=== PATIENT | female | born 1935 | race African-American/Black ===

== ENCOUNTER → 2017-01-27 | Outpatient (CLI) | payer MEDICARE ==
[~2017-01-27] MED LIST: CARB1TAB21 PO; LOSA25TA12 PO; MIR25 PO; SPIR25TA4 PO
== END | disposition home or self-care (01) ==
LOC: RAD 16:34
PROVIDERS: ATTEND Internal Medicine Critical Care Medicine
DX: Z01.818 Encounter for other preprocedural examination (principal); G20 Parkinson's disease; I51.7 Cardiomegaly; M51.87 Other intervertebral disc disorders, lumbosacral region
CPT/HCPCS: 71020

== ENCOUNTER → 2017-01-30 | Outpatient (CLI) | payer MEDICARE ==
[2017-01-30 18:03] LABS: BASOPHILS % 1.2 % (0.0-2.0); EOSINOPHILS % 2.9 % (0.0-5.0); HEMATOCRIT. 31.4 % (36.0-48.0); HEMOGLOBIN. 10.5 g/dL (12.0-16.0); MEAN CORPUSCULAR HEMOGLOBIN 28.8 pg (28.0-32.0); MEAN CORPUSCULAR HGB CONC 33.3 g/dL (31.0-37.0); MEAN CORPUSCULAR VOLUME 86.5 fL (81.0-99.0); MEAN PLATELET VOLUME 8.1 fl (7.4-10.4); MONOCYTES % 13.3 % (2.0-8.0); NEUTROPHILS % 44.6 % (40.0-76.0); PLATELET 157 x1000/uL (130-400); RED BLOOD CELL COUNT 3.63 mill/uL (4.2-5.4); WHITE BLOOD COUNT 3.2 x1000/uL (4.5-11.0)
[2017-01-30 18:22] LABS: ALANINE AMINOTRANSFERASE 15 IU/L (13-61); ALBUMIN 3.3 g/dL (3.4-5.0); ANION GAP 11; CALCIUM 9.1 mg/dL (8.5-10.1); CARBON DIOXIDE 29 mEq/L (21-32); CHLORIDE 105 mEq/L (98-107); INDEX HEMOLYSI 1 (1-3); INDEX ICTERIC 1 (1-4); INDEX LIPEMIC 1 (1-3); UREA NITROGEN BLOOD 22 mg/dL (7-21); eGFR > 60 mL/min (>60)
== END | disposition home or self-care (01) ==
LOC: LAB 17:22
PROVIDERS: ATTEND Internal Medicine Critical Care Medicine
DX: Z01.818 Encounter for other preprocedural examination (principal); G20 Parkinson's disease
CPT/HCPCS: 36415; 80053; 85025

== ENCOUNTER 2017-03-25 15:15 | Inpatient (IN) | payer MEDICARE ==
[~2017-03-25] VITALS: Ht 175.3 cm; Wt 71.2 kg
[2017-03-25 20:00] VITALS: BP 142/77
[2017-03-25] MEDS ORDERED: IBUPROFEN 200MG TABLET PO PRN (21:00)
[2017-03-25] MEDS ORDERED: PRAMIPEXOLE DI-HCL 0.125MG TABLET PO SCH (22:00)
[2017-03-25] MEDS: HYDRALAZINE HCL 25MG TABLET PO SCH (22:04)
[2017-03-25] MEDS: DONEPEZIL HCL 5MG TABLET PO SCH (22:04)
[2017-03-25] MEDS: PRAMIPEXOLE DI-HCL 0.25MG TABLET PO SCH (23:12)
[2017-03-26] MEDS: HYDROCODONE/ACETAMINOPHEN 5/325MG TABLET PO PRN (00:26)
[2017-03-26 06:47] LABS: INR 1.1; PROTHROMBIN TIME 11.2 sec
[2017-03-26] MEDS: PRAMIPEXOLE DI-HCL 0.25MG TABLET PO SCH ×3 (06:48→21:29)
[2017-03-26] MEDS ORDERED: PANTOPRAZOLE 40MG DR TABLET PO SCH (07:00)
[2017-03-26 07:06] LABS: BASOPHILS % 0.8 % (0.0-2.0); EOSINOPHILS % 1.2 % (0.0-5.0); HEMATOCRIT. 32.1 % (36.0-48.0); HEMOGLOBIN. 10.7 g/dL (12.0-16.0); LYMPHOCYTES % 34.4 % (20.0-50.0); MEAN CORPUSCULAR HEMOGLOBIN 28.5 pg (28.0-32.0); MEAN CORPUSCULAR VOLUME 85.4 fL (81.0-99.0); MEAN PLATELET VOLUME 7.7 fl (7.4-10.4); MONOCYTES % 12.1 % (2.0-8.0); NEUTROPHILS % 51.5 % (40.0-76.0); PLATELET 218 x1000/uL (130-400); RED BLOOD CELL COUNT 3.76 mill/uL (4.2-5.4); RED CELL DISTRIBUTION WIDTH 14.1 % (11.6-14.6)
[2017-03-26 07:42] LABS: CARBON DIOXIDE 27 mEq/L (21-32); CHLORIDE 105 mEq/L (98-107)
[2017-03-26 08:00] VITALS: BP 79/52
[2017-03-26] MEDS: CARBIDOPA/LEVODOPA 25/100MG TABLET CR PO SCH ×2 (08:30→17:12)
[2017-03-26] MEDS: HYDRALAZINE HCL 25MG TABLET PO SCH (08:30)
[2017-03-26] MEDS: DOCUSATE SODIUM 100MG CAPSULE PO SCH (08:30)
[2017-03-26] MEDS ORDERED: CHOLECALCIFEROL (D3) 1000 UNIT TABLET PO SCH (09:00)
[2017-03-26] MEDS ORDERED: SPIRONOLACTONE 25MG TABLET PO SCH (09:00)
[2017-03-26] MEDS ORDERED: SODIUM CHLORIDE 0.9% 250 ML IV ONE (09:30)
[2017-03-26] MEDS: ENOXAPARIN 40MG/0.4ML SYR SUBCUT SCH (11:49)
[2017-03-26 13:00] VITALS: BP 119/73
[2017-03-26] MEDS: CALCIUM CARBONATE/VITAMIN D3 500MG TABLET PO SCH (17:00)
[2017-03-26 20:00] VITALS: BP 108/61
[2017-03-26] MEDS: DONEPEZIL HCL 5MG TABLET PO SCH (21:29)
[2017-03-27] MEDS: PRAMIPEXOLE DI-HCL 0.25MG TABLET PO SCH ×3 (06:00→21:13)
[2017-03-27 08:00] VITALS: BP 162/87
[2017-03-27] MEDS: DOCUSATE SODIUM 100MG CAPSULE PO SCH (09:46)
[2017-03-27] MEDS: CALCIUM CARBONATE/VITAMIN D3 500MG TABLET PO SCH ×2 (09:46→16:40)
[2017-03-27] MEDS: MULTIVITAMINS,THER W-MINERALS TABLET PO SCH (09:46)
[2017-03-27] MEDS: CARBIDOPA/LEVODOPA 25/100MG TABLET CR PO SCH ×2 (09:47→16:40)
[2017-03-27] MEDS: LOSARTAN POTASSIUM 25 MG TABLET PO SCH (09:47)
[2017-03-27] MEDS: FAMOTIDINE 20MG TABLET PO SCH (09:47)
[2017-03-27] MEDS: ENOXAPARIN 40MG/0.4ML SYR SUBCUT SCH (09:47)
[2017-03-27] MEDS: HYDROCODONE/ACETAMINOPHEN 5/325MG TABLET PO PRN (09:48)
[2017-03-27] MEDS ORDERED: IBUPROFEN 400MG TABLET PO PRN (10:22)
[2017-03-27] MEDS: LIDOCAINE 5% PATCH TOP SCH (11:54)
[2017-03-27 18:46] LABS: CLARITY URINE TURBID (CLEAR); COLOR URINE YELLOW (YELLOW); GLUCOSE URINE NEGATIVE (NEGATIVE); KETONES URINE TRACE (NEGATIVE); LEUKOCYTE ESTERASE URINE 3+ (NEGATIVE); NITRITE URINE NEGATIVE (NEGATIVE); OCCULT BLOOD URINE 2+ (NEGATIVE); PH URINE 7.5 (4.5-8.0); PROTEIN URINE 2+ (NEGATIVE); SPECIFIC GRAVITY URINE 1.017 (1.005-1.030)
[2017-03-27 20:25] VITALS: BP 108/68
[2017-03-27 20:37] LABS: CARBON DIOXIDE 26 mEq/L (21-32); CHLORIDE 105 mEq/L (98-107)
[2017-03-27 20:39] LABS: TOTAL IRON BINDING CAPACITY 253 ug/dL (250-450)
[2017-03-27 20:47] LABS: PREALBUMIN 19.8 mg/dL (20.0-40.0)
[2017-03-27 21:01] LABS: FOLIC ACID (FOLATE) SERUM 10.5 ng/mL (>5.38)
[2017-03-27] MEDS: DONEPEZIL HCL 5MG TABLET PO SCH (21:13)
[2017-03-27] MEDS: BENZTROPINE MESYLATE 0.5MG TABLET PO SCH (21:13)
[2017-03-28] MEDS: PRAMIPEXOLE DI-HCL 0.25MG TABLET PO SCH ×3 (06:42→22:00)
[2017-03-28 08:00] VITALS: BP 131/84
[2017-03-28] MEDS: CARBIDOPA/LEVODOPA 25/100MG TABLET CR PO SCH ×2 (08:13→17:19)
[2017-03-28] MEDS: DOCUSATE SODIUM 100MG CAPSULE PO SCH (08:13)
[2017-03-28] MEDS: LOSARTAN POTASSIUM 25 MG TABLET PO SCH (08:13)
[2017-03-28] MEDS: FAMOTIDINE 20MG TABLET PO SCH (08:13)
[2017-03-28] MEDS: BENZTROPINE MESYLATE 0.5MG TABLET PO SCH ×2 (08:13→21:06)
[2017-03-28] MEDS: CALCIUM CARBONATE/VITAMIN D3 500MG TABLET PO SCH ×2 (08:13→17:19)
[2017-03-28] MEDS: MULTIVITAMINS,THER W-MINERALS TABLET PO SCH (08:13)
[2017-03-28] MEDS: ENOXAPARIN 40MG/0.4ML SYR SUBCUT SCH (08:14)
[2017-03-28] MEDS: LIDOCAINE 5% PATCH TOP SCH (08:14)
[2017-03-28] MEDS ORDERED: BISACODYL 10MG SUPP PR PRN (12:45)
[2017-03-28] MEDS ORDERED: BISACODYL 5MG TABLET PO PRN (12:45)
[2017-03-28] MEDS: LACTULOSE 20G/30ML UDC PO SCH ×2 (13:16→17:00)
[2017-03-28] MEDS: IBUPROFEN 400MG TABLET PO PRN (13:16)
[2017-03-28] MEDS: LEVOFLOXACIN 500MG TABLET PO SCH (17:19)
[2017-03-28] MEDS: ASCORBIC ACID 250 MG TABLET PO SCH (17:22)
[2017-03-28] MEDS: FERROUS SULFATE 325MG TABLET PO SCH (17:22)
[2017-03-28 20:00] VITALS: BP 85/45
[2017-03-28] MEDS: DONEPEZIL HCL 5MG TABLET PO SCH (21:06)
[2017-03-29] MEDS: PRAMIPEXOLE DI-HCL 0.25MG TABLET PO SCH ×3 (06:00→21:26)
[2017-03-29 07:55] LABS: BASOPHILS % 0.9 % (0.0-2.0); EOSINOPHILS % 1.6 % (0.0-5.0); HEMATOCRIT. 30.5 % (36.0-48.0); HEMOGLOBIN. 10.2 g/dL (12.0-16.0); LYMPHOCYTES % 32.4 % (20.0-50.0); MEAN CORPUSCULAR HEMOGLOBIN 28.5 pg (28.0-32.0); MEAN CORPUSCULAR VOLUME 85.2 fL (81.0-99.0); MEAN PLATELET VOLUME 7.5 fl (7.4-10.4); MONOCYTES % 13.8 % (2.0-8.0); NEUTROPHILS % 51.3 % (40.0-76.0); PLATELET 189 x1000/uL (130-400); RED BLOOD CELL COUNT 3.58 mill/uL (4.2-5.4); RED CELL DISTRIBUTION WIDTH 14.2 % (11.6-14.6)
[2017-03-29 08:29] LABS: CARBON DIOXIDE 29 mEq/L (21-32); CHLORIDE 106 mEq/L (98-107); HDL CHOLESTEROL 45 mg/dL (40-59); LDL CHOLESTEROL 82 mg/dL (5-100); TOTAL IRON BINDING CAPACITY 252 ug/dL (250-450)
[2017-03-29] MEDS: LIDOCAINE 5% PATCH TOP SCH (09:00)
[2017-03-29] MEDS: DOCUSATE SODIUM 100MG CAPSULE PO SCH (09:00)
[2017-03-29] MEDS: LOSARTAN POTASSIUM 25 MG TABLET PO SCH (09:00)
[2017-03-29] MEDS: CARBIDOPA/LEVODOPA 25/100MG TABLET CR PO SCH ×2 (09:15→17:33)
[2017-03-29] MEDS: CALCIUM CARBONATE/VITAMIN D3 500MG TABLET PO SCH ×2 (09:15→17:33)
[2017-03-29] MEDS: BENZTROPINE MESYLATE 0.5MG TABLET PO SCH ×2 (09:15→21:26)
[2017-03-29] MEDS: MULTIVITAMINS,THER W-MINERALS TABLET PO SCH (09:15)
[2017-03-29] MEDS: FAMOTIDINE 20MG TABLET PO SCH (09:15)
[2017-03-29] MEDS: ENOXAPARIN 40MG/0.4ML SYR SUBCUT SCH (09:19)
[2017-03-29 09:52] VITALS: BP 95/56
[2017-03-29] MEDS: LEVOFLOXACIN 500MG TABLET PO SCH (10:54)
[2017-03-29] MEDS: FERROUS SULFATE 325MG TABLET PO SCH (17:33)
[2017-03-29] MEDS: ASCORBIC ACID 250 MG TABLET PO SCH (17:33)
[2017-03-29 20:00] VITALS: BP 109/56
[2017-03-29] MEDS: DONEPEZIL HCL 5MG TABLET PO SCH (21:26)
[2017-03-30] MEDS: PRAMIPEXOLE DI-HCL 0.25MG TABLET PO SCH ×3 (06:09→22:00)
[2017-03-30 07:59] VITALS: BP 146/91
[2017-03-30] MEDS: MULTIVITAMINS,THER W-MINERALS TABLET PO SCH ×2 (08:56→09:00)
[2017-03-30] MEDS: DOCUSATE SODIUM 100MG CAPSULE PO SCH ×2 (08:56→09:00)
[2017-03-30] MEDS: ENOXAPARIN 40MG/0.4ML SYR SUBCUT SCH ×2 (08:56→09:00)
[2017-03-30] MEDS: LOSARTAN POTASSIUM 25 MG TABLET PO SCH (08:56)
[2017-03-30] MEDS: BENZTROPINE MESYLATE 0.5MG TABLET PO SCH ×2 (08:56→21:00)
[2017-03-30] MEDS: FAMOTIDINE 20MG TABLET PO SCH (08:56)
[2017-03-30] MEDS: CALCIUM CARBONATE/VITAMIN D3 500MG TABLET PO SCH ×2 (08:56→17:06)
[2017-03-30] MEDS: CARBIDOPA/LEVODOPA 25/100MG TABLET CR PO SCH ×2 (08:56→17:06)
[2017-03-30] MEDS: LIDOCAINE 5% PATCH TOP SCH ×2 (08:58→09:00)
[2017-03-30] MEDS: LEVOFLOXACIN 500MG TABLET PO SCH (11:07)
[2017-03-30] MEDS: ASCORBIC ACID 250 MG TABLET PO SCH (17:07)
[2017-03-30] MEDS: FERROUS SULFATE 325MG TABLET PO SCH (17:07)
[2017-03-30 20:00] VITALS: BP 92/58
[2017-03-30] MEDS: DONEPEZIL HCL 5MG TABLET PO SCH (21:00)
[2017-03-31] MEDS: PRAMIPEXOLE DI-HCL 0.25MG TABLET PO SCH ×3 (06:00→22:00)
[2017-03-31 06:29] LABS: BASOPHILS % 0.7 % (0.0-2.0); EOSINOPHILS % 1.6 % (0.0-5.0); HEMOGLOBIN. 11.4 g/dL (12.0-16.0); LYMPHOCYTES % 29.9 % (20.0-50.0); MEAN CORPUSCULAR HEMOGLOBIN 28.8 pg (28.0-32.0); MEAN CORPUSCULAR VOLUME 86.1 fL (81.0-99.0); MEAN PLATELET VOLUME 7.6 fl (7.4-10.4); MONOCYTES % 11.9 % (2.0-8.0); NEUTROPHILS % 55.9 % (40.0-76.0); PLATELET 192 x1000/uL (130-400); RED BLOOD CELL COUNT 3.95 mill/uL (4.2-5.4); RED CELL DISTRIBUTION WIDTH 14.2 % (11.6-14.6)
[2017-03-31 06:45] LABS: CARBON DIOXIDE 26 mEq/L (21-32); CHLORIDE 105 mEq/L (98-107)
[2017-03-31 08:00] VITALS: BP 148/92
[2017-03-31] MEDS: LOSARTAN POTASSIUM 25 MG TABLET PO SCH (09:00)
[2017-03-31] MEDS: LIDOCAINE 5% PATCH TOP SCH (09:00)
[2017-03-31] MEDS: DOCUSATE SODIUM 100MG CAPSULE PO SCH (11:44)
[2017-03-31] MEDS: CALCIUM CARBONATE/VITAMIN D3 500MG TABLET PO SCH ×2 (11:44→16:47)
[2017-03-31] MEDS: CARBIDOPA/LEVODOPA 25/100MG TABLET CR PO SCH ×2 (11:45→16:48)
[2017-03-31] MEDS: ENOXAPARIN 40MG/0.4ML SYR SUBCUT SCH (11:45)
[2017-03-31] MEDS: LEVOFLOXACIN 500MG TABLET PO SCH (11:45)
[2017-03-31] MEDS: MULTIVITAMINS,THER W-MINERALS TABLET PO SCH (11:45)
[2017-03-31] MEDS: BENZTROPINE MESYLATE 0.5MG TABLET PO SCH ×2 (11:45→21:00)
[2017-03-31] MEDS: FAMOTIDINE 20MG TABLET PO SCH (11:45)
[2017-03-31] MEDS: SULFAMETHOXAZOLE/TRIMETHOPRIM 800/160MG TABLET PO SCH ×2 (13:43→21:00)
[2017-03-31] MEDS: ASCORBIC ACID 250 MG TABLET PO SCH (16:48)
[2017-03-31] MEDS: FERROUS SULFATE 325MG TABLET PO SCH (16:48)
[2017-03-31 20:00] VITALS: BP 132/66
[2017-03-31] MEDS: DONEPEZIL HCL 5MG TABLET PO SCH (21:00)
[2017-04-01] MEDS: PRAMIPEXOLE DI-HCL 0.25MG TABLET PO SCH ×3 (06:00→21:03)
[2017-04-01 08:00] VITALS: BP 149/98
[2017-04-01] MEDS: CARBIDOPA/LEVODOPA 25/100MG TABLET CR PO SCH ×2 (08:05→16:23)
[2017-04-01] MEDS: SULFAMETHOXAZOLE/TRIMETHOPRIM 800/160MG TABLET PO SCH (08:05)
[2017-04-01] MEDS: MULTIVITAMINS,THER W-MINERALS TABLET PO SCH (08:06)
[2017-04-01] MEDS: ENOXAPARIN 40MG/0.4ML SYR SUBCUT SCH (08:06)
[2017-04-01] MEDS: CALCIUM CARBONATE/VITAMIN D3 500MG TABLET PO SCH ×2 (08:06→16:23)
[2017-04-01] MEDS: LOSARTAN POTASSIUM 25 MG TABLET PO SCH (08:06)
[2017-04-01] MEDS: LIDOCAINE 5% PATCH TOP SCH (08:06)
[2017-04-01] MEDS: BENZTROPINE MESYLATE 0.5MG TABLET PO SCH ×2 (08:06→21:04)
[2017-04-01] MEDS: DOCUSATE SODIUM 100MG CAPSULE PO SCH (08:06)
[2017-04-01] MEDS: IBUPROFEN 400MG TABLET PO PRN (08:06)
[2017-04-01] MEDS: FAMOTIDINE 20MG TABLET PO SCH (08:08)
[2017-04-01] MEDS: LEVOFLOXACIN 500MG TABLET PO SCH (12:25)
[2017-04-01] MEDS: FERROUS SULFATE 325MG TABLET PO SCH (16:23)
[2017-04-01] MEDS: ASCORBIC ACID 250 MG TABLET PO SCH (16:23)
[2017-04-01 20:00] VITALS: BP 110/76
[2017-04-01] MEDS ORDERED: QUETIAPINE FUMARATE 25MG TABLET PO SCH (21:00)
[2017-04-01] MEDS: DONEPEZIL HCL 5MG TABLET PO SCH (21:03)
[2017-04-02 08:00] VITALS: BP 111/61
[2017-04-02] MEDS: DOCUSATE SODIUM 100MG CAPSULE PO SCH (09:00)
[2017-04-02] MEDS: LOSARTAN POTASSIUM 25 MG TABLET PO SCH (09:00)
[2017-04-02] MEDS: CALCIUM CARBONATE/VITAMIN D3 500MG TABLET PO SCH ×2 (09:00→17:57)
[2017-04-02] MEDS: FAMOTIDINE 20MG TABLET PO SCH (09:00)
[2017-04-02] MEDS: ENOXAPARIN 40MG/0.4ML SYR SUBCUT SCH (09:00)
[2017-04-02] MEDS: MULTIVITAMINS,THER W-MINERALS TABLET PO SCH (09:00)
[2017-04-02] MEDS: BENZTROPINE MESYLATE 0.5MG TABLET PO SCH ×2 (09:12→20:57)
[2017-04-02] MEDS: CARBIDOPA/LEVODOPA 25/100MG TABLET CR PO SCH ×3 (09:12→17:57)
[2017-04-02] MEDS: IBUPROFEN 400MG TABLET PO PRN (09:18)
[2017-04-02] MEDS: LIDOCAINE 5% PATCH TOP SCH (09:19)
[2017-04-02] MEDS: LEVOFLOXACIN 500MG TABLET PO SCH (10:15)
[2017-04-02] MEDS: ASCORBIC ACID 250 MG TABLET PO SCH (17:57)
[2017-04-02] MEDS: FERROUS SULFATE 325MG TABLET PO SCH (17:57)
[2017-04-02 20:27] VITALS: BP 143/76
[2017-04-02] MEDS: QUETIAPINE FUMARATE 25MG TABLET PO SCH (20:57)
[2017-04-02] MEDS: DONEPEZIL HCL 5MG TABLET PO SCH (20:57)
[2017-04-03 08:00] VITALS: BP 153/78
[2017-04-03] MEDS: LIDOCAINE 5% PATCH TOP SCH ×2 (09:00→09:15)
[2017-04-03] MEDS: ENOXAPARIN 40MG/0.4ML SYR SUBCUT SCH (09:14)
[2017-04-03] MEDS: MULTIVITAMINS,THER W-MINERALS TABLET PO SCH (09:14)
[2017-04-03] MEDS: CALCIUM CARBONATE/VITAMIN D3 500MG TABLET PO SCH ×2 (09:14→17:35)
[2017-04-03] MEDS: FAMOTIDINE 20MG TABLET PO SCH (09:14)
[2017-04-03] MEDS: BENZTROPINE MESYLATE 0.5MG TABLET PO SCH ×2 (09:14→20:58)
[2017-04-03] MEDS: CARBIDOPA/LEVODOPA 25/100MG TABLET CR PO SCH ×3 (09:14→17:35)
[2017-04-03] MEDS: DOCUSATE SODIUM 100MG CAPSULE PO SCH (09:14)
[2017-04-03] MEDS: LEVOFLOXACIN 500MG TABLET PO SCH (10:55)
[2017-04-03] MEDS: IBUPROFEN 400MG TABLET PO PRN (15:29)
[2017-04-03] MEDS: FERROUS SULFATE 325MG TABLET PO SCH (17:35)
[2017-04-03] MEDS: ASCORBIC ACID 250 MG TABLET PO SCH (17:35)
[2017-04-03 20:00] VITALS: BP 132/78
[2017-04-03] MEDS: DONEPEZIL HCL 5MG TABLET PO SCH (20:58)
[2017-04-03] MEDS: QUETIAPINE FUMARATE 25MG TABLET PO SCH (20:58)
[2017-04-04 08:00] VITALS: BP 118/71
[2017-04-04] MEDS: BENZTROPINE MESYLATE 0.5MG TABLET PO SCH ×2 (08:55→22:16)
[2017-04-04] MEDS: CARBIDOPA/LEVODOPA 25/100MG TABLET CR PO SCH ×3 (08:55→17:57)
[2017-04-04] MEDS: ENOXAPARIN 40MG/0.4ML SYR SUBCUT SCH (08:55)
[2017-04-04] MEDS: FAMOTIDINE 20MG TABLET PO SCH (08:56)
[2017-04-04] MEDS: DOCUSATE SODIUM 100MG CAPSULE PO SCH (08:56)
[2017-04-04] MEDS: LIDOCAINE 5% PATCH TOP SCH (08:56)
[2017-04-04] MEDS: CALCIUM CARBONATE/VITAMIN D3 500MG TABLET PO SCH ×2 (08:58→17:57)
[2017-04-04] MEDS: MULTIVITAMINS,THER W-MINERALS TABLET PO SCH (08:58)
[2017-04-04] MEDS: LEVOFLOXACIN 500MG TABLET PO SCH (11:43)
[2017-04-04] MEDS: ASCORBIC ACID 250 MG TABLET PO SCH (17:57)
[2017-04-04] MEDS: FERROUS SULFATE 325MG TABLET PO SCH (17:57)
[2017-04-04 19:12] LABS: 25-HYDROXY VITAMIN D3 26 ng/mL (.)
[2017-04-04 19:53] VITALS: BP 124/93
[2017-04-04] MEDS: DONEPEZIL HCL 5MG TABLET PO SCH (22:16)
[2017-04-04] MEDS: QUETIAPINE FUMARATE 25MG TABLET PO SCH (22:16)
[2017-04-05 08:00] VITALS: BP 144/76
[2017-04-05] MEDS: FAMOTIDINE 20MG TABLET PO SCH (09:00)
[2017-04-05] MEDS: MULTIVITAMINS,THER W-MINERALS TABLET PO SCH (09:00)
[2017-04-05] MEDS: ENOXAPARIN 40MG/0.4ML SYR SUBCUT SCH (09:00)
[2017-04-05] MEDS: LIDOCAINE 5% PATCH TOP SCH (09:00)
[2017-04-05] MEDS: BENZTROPINE MESYLATE 0.5MG TABLET PO SCH ×3 (09:00→21:00)
[2017-04-05] MEDS: CALCIUM CARBONATE/VITAMIN D3 500MG TABLET PO SCH ×2 (09:00→17:00)
[2017-04-05] MEDS: CARBIDOPA/LEVODOPA 25/100MG TABLET CR PO SCH ×3 (09:00→17:00)
[2017-04-05] MEDS: DOCUSATE SODIUM 100MG CAPSULE PO SCH (09:00)
[2017-04-05] MEDS: LEVOFLOXACIN 500MG TABLET PO SCH (11:00)
[2017-04-05] MEDS ORDERED: LACTULOSE 20G/30ML UDC PO PRN (14:15)
[2017-04-05] MEDS: ASCORBIC ACID 250 MG TABLET PO SCH (18:00)
[2017-04-05] MEDS: FERROUS SULFATE 325MG TABLET PO SCH (18:00)
[2017-04-05 20:00] VITALS: BP 109/65
[2017-04-05] MEDS: DONEPEZIL HCL 5MG TABLET PO SCH ×2 (20:41→21:00)
[2017-04-05] MEDS: QUETIAPINE FUMARATE 25MG TABLET PO SCH ×2 (20:42→21:00)
[2017-04-06] MEDS: IBUPROFEN 400MG TABLET PO PRN (07:08)
[2017-04-06 08:00] VITALS: BP 142/90
[2017-04-06] MEDS: CARBIDOPA/LEVODOPA 25/100MG TABLET CR PO SCH ×3 (08:14→16:33)
[2017-04-06] MEDS: CALCIUM CARBONATE/VITAMIN D3 500MG TABLET PO SCH ×2 (08:14→16:33)
[2017-04-06] MEDS: FAMOTIDINE 20MG TABLET PO SCH (08:14)
[2017-04-06] MEDS: DOCUSATE SODIUM 100MG CAPSULE PO SCH (08:14)
[2017-04-06] MEDS: MULTIVITAMINS,THER W-MINERALS TABLET PO SCH (08:14)
[2017-04-06] MEDS: ENOXAPARIN 40MG/0.4ML SYR SUBCUT SCH (08:14)
[2017-04-06] MEDS: BENZTROPINE MESYLATE 0.5MG TABLET PO SCH ×2 (08:15→21:48)
[2017-04-06] MEDS: LIDOCAINE 5% PATCH TOP SCH (08:15)
[2017-04-06] MEDS: LEVOFLOXACIN 500MG TABLET PO SCH (11:29)
[2017-04-06] MEDS: FERROUS SULFATE 325MG TABLET PO SCH (16:33)
[2017-04-06] MEDS: ASCORBIC ACID 250 MG TABLET PO SCH (16:33)
[2017-04-06 20:00] VITALS: BP 131/90
[2017-04-06] MEDS: DONEPEZIL HCL 5MG TABLET PO SCH (21:48)
[2017-04-06] MEDS: QUETIAPINE FUMARATE 25MG TABLET PO SCH (21:49)
[2017-04-07 08:00] VITALS: BP 131/88
[2017-04-07] MEDS: FAMOTIDINE 20MG TABLET PO SCH (08:52)
[2017-04-07] MEDS: CARBIDOPA/LEVODOPA 25/100MG TABLET CR PO SCH ×3 (08:52→17:34)
[2017-04-07] MEDS: BENZTROPINE MESYLATE 0.5MG TABLET PO SCH ×2 (08:52→21:00)
[2017-04-07] MEDS: ENOXAPARIN 40MG/0.4ML SYR SUBCUT SCH (08:52)
[2017-04-07] MEDS: CALCIUM CARBONATE/VITAMIN D3 500MG TABLET PO SCH ×2 (08:52→17:34)
[2017-04-07] MEDS: MULTIVITAMINS,THER W-MINERALS TABLET PO SCH (08:52)
[2017-04-07] MEDS: DOCUSATE SODIUM 100MG CAPSULE PO SCH (08:58)
[2017-04-07] MEDS: LIDOCAINE 5% PATCH TOP SCH (08:58)
[2017-04-07] MEDS: CHOLECALCIFEROL (D3) 1000 UNIT TABLET PO SCH (11:18)
[2017-04-07] MEDS: ASCORBIC ACID 250 MG TABLET PO SCH (17:34)
[2017-04-07] MEDS: FERROUS SULFATE 325MG TABLET PO SCH (17:34)
[2017-04-07 20:00] VITALS: BP 144/89
[2017-04-07] MEDS: QUETIAPINE FUMARATE 25MG TABLET PO SCH (21:00)
[2017-04-07] MEDS: DONEPEZIL HCL 5MG TABLET PO SCH (21:00)
[2017-04-08 06:32] LABS: BASOPHILS % 1.1 % (0.0-2.0); EOSINOPHILS % 1.8 % (0.0-5.0); HEMATOCRIT. 32.5 % (36.0-48.0); HEMOGLOBIN. 10.8 g/dL (12.0-16.0); LYMPHOCYTES % 35.4 % (20.0-50.0); MEAN CORPUSCULAR HEMOGLOBIN 28.4 pg (28.0-32.0); MEAN PLATELET VOLUME 7.7 fl (7.4-10.4); MONOCYTES % 11.8 % (2.0-8.0); NEUTROPHILS % 49.9 % (40.0-76.0); PLATELET 227 x1000/uL (130-400); RED BLOOD CELL COUNT 3.82 mill/uL (4.2-5.4); RED CELL DISTRIBUTION WIDTH 13.7 % (11.6-14.6)
[2017-04-08 06:54] LABS: CARBON DIOXIDE 28 mEq/L (21-32); CHLORIDE 105 mEq/L (98-107)
[2017-04-08 08:00] VITALS: BP 150/102
[2017-04-08] MEDS: LIDOCAINE 5% PATCH TOP SCH (09:00)
[2017-04-08] MEDS: FAMOTIDINE 20MG TABLET PO SCH (10:12)
[2017-04-08] MEDS: DOCUSATE SODIUM 100MG CAPSULE PO SCH (10:12)
[2017-04-08] MEDS: CARBIDOPA/LEVODOPA 25/100MG TABLET CR PO SCH ×3 (10:12→17:29)
[2017-04-08] MEDS: MULTIVITAMINS,THER W-MINERALS TABLET PO SCH (10:12)
[2017-04-08] MEDS: CHOLECALCIFEROL (D3) 1000 UNIT TABLET PO SCH (10:13)
[2017-04-08] MEDS: BENZTROPINE MESYLATE 0.5MG TABLET PO SCH ×2 (10:13→21:19)
[2017-04-08] MEDS: CALCIUM CARBONATE/VITAMIN D3 500MG TABLET PO SCH ×2 (10:13→17:29)
[2017-04-08] MEDS: ENOXAPARIN 40MG/0.4ML SYR SUBCUT SCH (10:13)
[2017-04-08] MEDS: FERROUS SULFATE 325MG TABLET PO SCH (17:29)
[2017-04-08] MEDS: ASCORBIC ACID 250 MG TABLET PO SCH (17:29)
[2017-04-08 20:00] VITALS: BP 110/66
[2017-04-08] MEDS: DONEPEZIL HCL 5MG TABLET PO SCH (21:18)
[2017-04-08] MEDS: QUETIAPINE FUMARATE 25MG TABLET PO SCH (21:19)
[2017-04-09 08:00] VITALS: BP 147/83
[2017-04-09] MEDS: CALCIUM CARBONATE/VITAMIN D3 500MG TABLET PO SCH ×2 (08:37→18:11)
[2017-04-09] MEDS: CHOLECALCIFEROL (D3) 1000 UNIT TABLET PO SCH (08:37)
[2017-04-09] MEDS: CARBIDOPA/LEVODOPA 25/100MG TABLET CR PO SCH ×3 (08:37→18:11)
[2017-04-09] MEDS: BENZTROPINE MESYLATE 0.5MG TABLET PO SCH ×2 (08:37→21:08)
[2017-04-09] MEDS: FAMOTIDINE 20MG TABLET PO SCH (08:37)
[2017-04-09] MEDS: MULTIVITAMINS,THER W-MINERALS TABLET PO SCH (08:37)
[2017-04-09] MEDS: DOCUSATE SODIUM 100MG CAPSULE PO SCH (08:37)
[2017-04-09] MEDS: ENOXAPARIN 40MG/0.4ML SYR SUBCUT SCH (08:38)
[2017-04-09] MEDS: LIDOCAINE 5% PATCH TOP SCH (08:39)
[2017-04-09 12:42] LABS: CLARITY URINE CLEAR (CLEAR); COLOR URINE YELLOW (YELLOW); GLUCOSE URINE NEGATIVE (NEGATIVE); KETONES URINE NEGATIVE (NEGATIVE); LEUKOCYTE ESTERASE URINE NEGATIVE (NEGATIVE); NITRITE URINE NEGATIVE (NEGATIVE); OCCULT BLOOD URINE NEGATIVE (NEGATIVE); PROTEIN URINE NEGATIVE (NEGATIVE); SPECIFIC GRAVITY URINE 1.008 (1.005-1.030); UROBILINOGEN URINE 0.2 E.U./dL (0.2-1.0)
[2017-04-09] MEDS: ASCORBIC ACID 250 MG TABLET PO SCH (18:11)
[2017-04-09] MEDS: FERROUS SULFATE 325MG TABLET PO SCH (18:11)
[2017-04-09 20:00] VITALS: BP 130/83
[2017-04-09] MEDS: DONEPEZIL HCL 5MG TABLET PO SCH (21:08)
[2017-04-09] MEDS: QUETIAPINE FUMARATE 25MG TABLET PO SCH (21:09)
[2017-04-10 08:00] VITALS: BP 145/79
[2017-04-10] MEDS: BENZTROPINE MESYLATE 0.5MG TABLET PO SCH ×2 (08:33→21:23)
[2017-04-10] MEDS: MULTIVITAMINS,THER W-MINERALS TABLET PO SCH (08:33)
[2017-04-10] MEDS: CALCIUM CARBONATE/VITAMIN D3 500MG TABLET PO SCH ×2 (08:33→16:35)
[2017-04-10] MEDS: DOCUSATE SODIUM 100MG CAPSULE PO SCH ×2 (08:33→08:38)
[2017-04-10] MEDS: CHOLECALCIFEROL (D3) 1000 UNIT TABLET PO SCH (08:33)
[2017-04-10] MEDS: CARBIDOPA/LEVODOPA 25/100MG TABLET CR PO SCH ×3 (08:33→16:35)
[2017-04-10] MEDS: FAMOTIDINE 20MG TABLET PO SCH (08:33)
[2017-04-10] MEDS: ENOXAPARIN 40MG/0.4ML SYR SUBCUT SCH (08:34)
[2017-04-10] MEDS: LIDOCAINE 5% PATCH TOP SCH (08:38)
[2017-04-10] MEDS: ASCORBIC ACID 250 MG TABLET PO SCH (16:35)
[2017-04-10] MEDS: FERROUS SULFATE 325MG TABLET PO SCH (16:35)
[2017-04-10 20:00] VITALS: BP 141/86
[2017-04-10] MEDS: QUETIAPINE FUMARATE 25MG TABLET PO SCH (21:23)
[2017-04-10] MEDS: DONEPEZIL HCL 5MG TABLET PO SCH (21:23)
[2017-04-11 08:00] VITALS: BP 114/71
[2017-04-11] MEDS: DOCUSATE SODIUM 100MG CAPSULE PO SCH (08:45)
[2017-04-11] MEDS: MULTIVITAMINS,THER W-MINERALS TABLET PO SCH (08:45)
[2017-04-11] MEDS: CALCIUM CARBONATE/VITAMIN D3 500MG TABLET PO SCH ×2 (08:45→18:28)
[2017-04-11] MEDS: CHOLECALCIFEROL (D3) 1000 UNIT TABLET PO SCH (08:46)
[2017-04-11] MEDS: FAMOTIDINE 20MG TABLET PO SCH (08:46)
[2017-04-11] MEDS: ENOXAPARIN 40MG/0.4ML SYR SUBCUT SCH (08:46)
[2017-04-11] MEDS: CARBIDOPA/LEVODOPA 25/100MG TABLET CR PO SCH ×3 (08:46→18:28)
[2017-04-11] MEDS: BENZTROPINE MESYLATE 0.5MG TABLET PO SCH ×2 (08:46→21:00)
[2017-04-11] MEDS: LIDOCAINE 5% PATCH TOP SCH (08:57)
[2017-04-11 15:32] VITALS: BP 114/71
[2017-04-11] MEDS: FERROUS SULFATE 325MG TABLET PO SCH (18:28)
[2017-04-11] MEDS: ASCORBIC ACID 250 MG TABLET PO SCH (18:28)
[2017-04-11 20:00] VITALS: BP 157/87
[2017-04-11] MEDS: DONEPEZIL HCL 5MG TABLET PO SCH (21:00)
[2017-04-11] MEDS: QUETIAPINE FUMARATE 25MG TABLET PO SCH (21:00)
[2017-04-12 08:00] VITALS: BP 146/82
[2017-04-12] MEDS: LIDOCAINE 5% PATCH TOP SCH (09:00)
[2017-04-12] MEDS: MULTIVITAMINS,THER W-MINERALS TABLET PO SCH (10:01)
[2017-04-12] MEDS: CARBIDOPA/LEVODOPA 25/100MG TABLET CR PO SCH ×3 (10:01→17:18)
[2017-04-12] MEDS: BENZTROPINE MESYLATE 0.5MG TABLET PO SCH ×2 (10:02→21:00)
[2017-04-12] MEDS: ENOXAPARIN 40MG/0.4ML SYR SUBCUT SCH (10:02)
[2017-04-12] MEDS: CALCIUM CARBONATE/VITAMIN D3 500MG TABLET PO SCH ×2 (10:02→17:18)
[2017-04-12] MEDS: FAMOTIDINE 20MG TABLET PO SCH (10:02)
[2017-04-12] MEDS: DOCUSATE SODIUM 100MG CAPSULE PO SCH (10:02)
[2017-04-12] MEDS: CHOLECALCIFEROL (D3) 1000 UNIT TABLET PO SCH (10:02)
[2017-04-12 13:21] LABS: BASOPHILS % 1.1 % (0.0-2.0); EOSINOPHILS % 2.1 % (0.0-5.0); HEMATOCRIT. 34.1 % (36.0-48.0); HEMOGLOBIN. 11.4 g/dL (12.0-16.0); LYMPHOCYTES % 33.7 % (20.0-50.0); MEAN CORPUSCULAR HEMOGLOBIN 28.2 pg (28.0-32.0); MEAN CORPUSCULAR VOLUME 84.6 fL (81.0-99.0); MEAN PLATELET VOLUME 7.6 fl (7.4-10.4); MONOCYTES % 13.5 % (2.0-8.0); NEUTROPHILS % 49.6 % (40.0-76.0); PLATELET 220 x1000/uL (130-400); RED BLOOD CELL COUNT 4.04 mill/uL (4.2-5.4); RED CELL DISTRIBUTION WIDTH 14.1 % (11.6-14.6)
[2017-04-12 13:39] LABS: CARBON DIOXIDE 31 mEq/L (21-32); CHLORIDE 105 mEq/L (98-107)
[2017-04-12] MEDS ORDERED: NA PHOS,M-B/NA PHOS,DI-BA ENEMA 118ML PR ONE (15:15)
[2017-04-12] MEDS: ASCORBIC ACID 250 MG TABLET PO SCH (17:18)
[2017-04-12] MEDS: FERROUS SULFATE 325MG TABLET PO SCH (17:18)
[2017-04-12 20:00] VITALS: BP 120/69
[2017-04-12] MEDS: DONEPEZIL HCL 5MG TABLET PO SCH (21:00)
[2017-04-12] MEDS: QUETIAPINE FUMARATE 25MG TABLET PO SCH (21:00)
[2017-04-13 08:00] VITALS: BP 143/85
[2017-04-13] MEDS: CARBIDOPA/LEVODOPA 25/100MG TABLET CR PO SCH ×3 (09:00→17:00)
[2017-04-13] MEDS: DOCUSATE SODIUM 100MG CAPSULE PO SCH (09:00)
[2017-04-13] MEDS: CHOLECALCIFEROL (D3) 1000 UNIT TABLET PO SCH (09:00)
[2017-04-13] MEDS: CALCIUM CARBONATE/VITAMIN D3 500MG TABLET PO SCH ×2 (09:00→17:00)
[2017-04-13] MEDS: FAMOTIDINE 20MG TABLET PO SCH (09:00)
[2017-04-13] MEDS: LIDOCAINE 5% PATCH TOP SCH (09:00)
[2017-04-13] MEDS: BENZTROPINE MESYLATE 0.5MG TABLET PO SCH ×2 (09:00→20:00)
[2017-04-13] MEDS: MULTIVITAMINS,THER W-MINERALS TABLET PO SCH (09:00)
[2017-04-13] MEDS: ENOXAPARIN 40MG/0.4ML SYR SUBCUT SCH (09:10)
[2017-04-13] MEDS: ASCORBIC ACID 250 MG TABLET PO SCH (17:45)
[2017-04-13] MEDS: FERROUS SULFATE 325MG TABLET PO SCH (17:45)
[2017-04-13 20:00] VITALS: BP 129/74
[2017-04-13] MEDS: DONEPEZIL HCL 5MG TABLET PO SCH (20:00)
[2017-04-13] MEDS: QUETIAPINE FUMARATE 25MG TABLET PO SCH (20:00)
[2017-04-14 08:00] VITALS: BP 113/67
[2017-04-14] MEDS: MULTIVITAMINS,THER W-MINERALS TABLET PO SCH (08:40)
[2017-04-14] MEDS: FAMOTIDINE 20MG TABLET PO SCH (08:40)
[2017-04-14] MEDS: DOCUSATE SODIUM 100MG CAPSULE PO SCH (08:40)
[2017-04-14] MEDS: CARBIDOPA/LEVODOPA 25/100MG TABLET CR PO SCH (08:40)
[2017-04-14] MEDS: CHOLECALCIFEROL (D3) 1000 UNIT TABLET PO SCH (08:41)
[2017-04-14] MEDS: BENZTROPINE MESYLATE 0.5MG TABLET PO SCH (08:41)
[2017-04-14] MEDS: LIDOCAINE 5% PATCH TOP SCH (08:41)
[2017-04-14] MEDS: CALCIUM CARBONATE/VITAMIN D3 500MG TABLET PO SCH (08:41)
[2017-04-14] MEDS: ENOXAPARIN 40MG/0.4ML SYR SUBCUT SCH (08:41)
== END 2017-04-14 12:00 | disposition home health service (06) | DRG 535 ==
PROVIDERS: ADMIT Psychiatry & Neurology Neurology; ATTEND Internal Medicine Critical Care Medicine
DX: S72.141A Displaced intertrochanteric fracture of right femur, initial encounter for closed fracture (principal); G93.40 Encephalopathy, unspecified; N39.0 Urinary tract infection, site not specified; D62 Acute posthemorrhagic anemia; W19.XXXA Unspecified fall, initial encounter; K21.9 Gastro-esophageal reflux disease without esophagitis; R26.9 Unspecified abnormalities of gait and mobility; R62.7 Adult failure to thrive; G20 Parkinson's disease; F02.80 Dementia in other diseases classified elsewhere, unspecified severity, without behavioral disturbance, psychotic disturbance, mood disturbance, and anxiety; B96.20 Unspecified Escherichia coli [E. coli] as the cause of diseases classified elsewhere; D50.9 Iron deficiency anemia, unspecified; F39 Unspecified mood [affective] disorder; G25.81 Restless legs syndrome; I11.9 Hypertensive heart disease without heart failure; I95.9 Hypotension, unspecified; Z96.1 Presence of intraocular lens; F09 Unspecified mental disorder due to known physiological condition; R32 Unspecified urinary incontinence; M43.6 Torticollis; Z82.49 Family history of ischemic heart disease and other diseases of the circulatory system; Z87.891 Personal history of nicotine dependence; Z90.710 Acquired absence of both cervix and uterus; Z98.49 Cataract extraction status, unspecified eye; Y93.89 Activity, other specified; Y99.8 Other external cause status; Z79.899 Other long term (current) drug therapy; Y92.481 Parking lot as the place of occurrence of the external cause
CPT/HCPCS: 36415; 70450; 80048; 80053; 80061; 81001; 81003; 82270; 82306; 82607; 82728; 82746; 82962; 83540; 83550; 84134; 84443; 84630; 85025; 85610; 87077; 87086; 87186; 92523; 93970; 97110; 97112; 97116; 97163; 97167; 97530; 97532; 97535; A4565; A6261; C1893; J1650; J7040; J7050

== ENCOUNTER 2017-05-08 08:37 | Emergency (ER) | payer MEDICARE ==
[~2017-05-08] VITALS: Ht 172.7 cm; Wt 68.0 kg
[2017-05-08 10:02] LABS: BASOPHILS % 1.2 % (0.0-2.0); EOSINOPHILS % 3.4 % (0.0-5.0); HEMATOCRIT. 34.2 % (36.0-48.0); HEMOGLOBIN. 11.2 g/dL (12.0-16.0); LYMPHOCYTES % 42.6 % (20.0-50.0); MEAN CORPUSCULAR HEMOGLOBIN 27.7 pg (28.0-32.0); MEAN CORPUSCULAR VOLUME 84.3 fL (81.0-99.0); MEAN PLATELET VOLUME 7.6 fl (7.4-10.4); MONOCYTES % 11.5 % (2.0-8.0); NEUTROPHILS % 41.3 % (40.0-76.0); PLATELET 183 x1000/uL (130-400); RED BLOOD CELL COUNT 4.06 mill/uL (4.2-5.4)
[2017-05-08 10:11] LABS: INR 1.2
[2017-05-08 10:13] LABS: CHLORIDE 104 mEq/L (98-107)
[2017-05-08 10:15] LABS: GLUCOSE URINE NEGATIVE (NEGATIVE); KETONES URINE NEGATIVE (NEGATIVE); LEUKOCYTE ESTERASE URINE NEGATIVE (NEGATIVE); NITRITE URINE NEGATIVE (NEGATIVE); OCCULT BLOOD URINE NEGATIVE (NEGATIVE); PROTEIN URINE NEGATIVE (NEGATIVE); SPECIFIC GRAVITY URINE 1.008 (1.005-1.030); UROBILINOGEN URINE 0.2 E.U./dL (0.2-1.0)
[2017-05-08 10:19] LABS: CARBON DIOXIDE 32 mEq/L (21-32)
[2017-05-08 10:22] LABS: CLARITY URINE SL HAZY (CLEAR)
[2017-05-08 10:25] LABS: COLOR URINE STRAW (YELLOW)
[2017-05-08] MEDS ORDERED: LOSARTAN POTASSIUM 25 MG TABLET PO ONE (13:15)
[2017-05-08 16:01] VITALS: BP 151/83
== END 2017-05-08 16:02 | disposition home or self-care (01) ==
LOC: ER 08:50
DX: M79.1 Myalgia (principal); G20 Parkinson's disease; I10 Essential (primary) hypertension; F03.90 Unspecified dementia, unspecified severity, without behavioral disturbance, psychotic disturbance, mood disturbance, and anxiety; Z96.641 Presence of right artificial hip joint
CPT/HCPCS: 36415; 71010; 73502; 80053; 81001; 85025; 85610; 99285; A4315

== ENCOUNTER 2017-05-17 09:04 | Inpatient (IN) | payer MEDICARE ==
[~2017-05-17] VITALS: Ht 167.6 cm; Wt 50.8 kg
[2017-05-17] MEDS ORDERED: SODIUM CHLORIDE 0.9% 500 ML IV ONE (09:13)
[2017-05-17 11:15] LABS: EOSINOPHILS % 2.6 % (0.0-5.0); HEMATOCRIT. 34.8 % (36.0-48.0); HEMOGLOBIN. 11.5 g/dL (12.0-16.0); LYMPHOCYTES % 36.9 % (20.0-50.0); MEAN CORPUSCULAR HEMOGLOBIN 27.6 pg (28.0-32.0); MEAN CORPUSCULAR VOLUME 83.4 fL (81.0-99.0); MEAN PLATELET VOLUME 7.7 fl (7.4-10.4); MONOCYTES % 11.5 % (2.0-8.0); PLATELET 218 x1000/uL (130-400); RED BLOOD CELL COUNT 4.17 mill/uL (4.2-5.4); RED CELL DISTRIBUTION WIDTH 13.8 % (11.6-14.6)
[2017-05-17 11:21] LABS: INR 1.1; PARTIAL THROMBOPLASTIN TIME 26.4 sec (24.0-34.0); PROTHROMBIN TIME 11.6 sec
[2017-05-17 11:27] LABS: CARBON DIOXIDE 32 mEq/L (21-32); CHLORIDE 106 mEq/L (98-107)
[2017-05-17 11:35] LABS: TROPONIN I < 0.02 ng/mL (0.00-0.04)
[2017-05-17 11:58] LABS: CLARITY URINE CLOUDY (CLEAR); COLOR URINE YELLOW (YELLOW); GLUCOSE URINE NEGATIVE (NEGATIVE); KETONES URINE NEGATIVE (NEGATIVE); LEUKOCYTE ESTERASE URINE NEGATIVE (NEGATIVE); NITRITE URINE NEGATIVE (NEGATIVE); OCCULT BLOOD URINE NEGATIVE (NEGATIVE); PROTEIN URINE NEGATIVE (NEGATIVE); SPECIFIC GRAVITY URINE 1.008 (1.005-1.030)
[2017-05-17] MEDS ORDERED: ENALAPRIL 2.5MG/2ML VIAL 2ML IV ONE (12:45)
[2017-05-17 14:00] VITALS: BP 155/93
[2017-05-17 15:00] VITALS: BP 155/93
[2017-05-17 16:00] VITALS: BP 176/103
[2017-05-17] MEDS ORDERED: BENZ0.5T3 (19:37)
[2017-05-17] MEDS ORDERED: DONE5TAB33 (19:37)
[2017-05-17] MEDS ORDERED: LACT10SO (19:37)
[2017-05-17] MEDS ORDERED: FAMO20TA8 (19:37)
[2017-05-17 20:00] VITALS: BP 116/71
[2017-05-17] MEDS ORDERED: ACETAMINOPHEN 650MG SUPP PR PRN (21:45)
[2017-05-17] MEDS ORDERED: ENOXAPARIN 40MG/0.4ML SYR SUBCUT SCH (22:30)
[2017-05-17] MEDS ORDERED: MVI, ADULT NO.1 10 ML, FOLIC ACID 1 MG, THIAMINE HCL 100 MG in SODIUM CHLORIDE 0.9% 1,0... IV NR ×4 (23:30)
[2017-05-18] MEDS: SPIRONOLACTONE 25MG TABLET PO SCH ×2 (00:12→10:05)
[2017-05-18] MEDS: DONEPEZIL HCL 10MG TABLET PO SCH ×2 (00:13→10:05)
[2017-05-18] MEDS: BENZTROPINE MESYLATE 0.5MG TABLET PO SCH ×2 (00:13→11:59)
[2017-05-18] MEDS: CARBIDOPA/LEVODOPA 25/100MG TABLET PO SCH ×3 (00:13→16:22)
[2017-05-18] MEDS: LOSARTAN POTASSIUM 25 MG TABLET PO SCH ×2 (00:14→10:05)
[2017-05-18] MEDS: FAMOTIDINE 20MG/2ML VIAL IV SCH ×2 (00:14→10:04)
[2017-05-18] MEDS: LACTULOSE 20G/30ML UDC PO SCH ×3 (00:14→16:22)
[2017-05-18] MEDS ORDERED: HALOPERIDOL LACTATE 5MG/ML VIAL IM PRN (01:00)
[2017-05-18] MEDS: DEXT 5% WATER + KCL 20MEQ/L 1,000 ML IV SCH ×2 (01:30→12:06)
[2017-05-18 04:00] VITALS: BP 110/65
[2017-05-18 06:29] LABS: CARBON DIOXIDE 28 mEq/L (21-32); CHLORIDE 105 mEq/L (98-107)
[2017-05-18 07:08] LABS: EOSINOPHILS % 1.1 % (0.0-5.0); HEMATOCRIT. 33.1 % (36.0-48.0); LYMPHOCYTES % 22.7 % (20.0-50.0); MEAN CORPUSCULAR HEMOGLOBIN 27.8 pg (28.0-32.0); MEAN CORPUSCULAR VOLUME 83.7 fL (81.0-99.0); MEAN PLATELET VOLUME 7.9 fl (7.4-10.4); NEUTROPHILS % 64.2 % (40.0-76.0); PLATELET 210 x1000/uL (130-400); RED BLOOD CELL COUNT 3.96 mill/uL (4.2-5.4); RED CELL DISTRIBUTION WIDTH 13.7 % (11.6-14.6)
[2017-05-18 08:00] VITALS: BP 116/84
[2017-05-18 12:00] VITALS: BP 153/93
[2017-05-18 16:00] VITALS: BP 146/87
[2017-05-18 20:00] VITALS: BP 131/68
[2017-05-19] VITALS: BP 132/79
[2017-05-19] MEDS: LACTULOSE 20G/30ML UDC PO SCH ×4 (00:04→22:00)
[2017-05-19] MEDS: CARBIDOPA/LEVODOPA 25/100MG TABLET PO SCH ×5 (00:04→22:00)
[2017-05-19] MEDS: PRAMIPEXOLE DI-HCL 0.25MG TABLET PO SCH ×2 (00:04→21:00)
[2017-05-19] MEDS: BENZTROPINE MESYLATE 0.5MG TABLET PO SCH ×3 (00:04→22:50)
[2017-05-19] MEDS: DEXT 5% WATER + KCL 20MEQ/L 1,000 ML IV SCH (01:32)
[2017-05-19 04:00] VITALS: BP_SYST 119
[2017-05-19 08:00] VITALS: BP 120/80
[2017-05-19] MEDS: FAMOTIDINE 20MG/2ML VIAL IV SCH (09:11)
[2017-05-19] MEDS: LOSARTAN POTASSIUM 25 MG TABLET PO SCH (09:18)
[2017-05-19] MEDS: SPIRONOLACTONE 25MG TABLET PO SCH (09:20)
[2017-05-19] MEDS: DONEPEZIL HCL 10MG TABLET PO SCH (09:21)
[2017-05-19] MEDS: ENOXAPARIN 30MG/0.3ML SYR SUBCUT SCH (09:27)
[2017-05-19] MEDS ORDERED: ENOXAPARIN 30MG/0.3ML SYR SUBCUT SCH (11:30)
[2017-05-19 16:00] VITALS: BP 130/60
[2017-05-19 20:00] VITALS: BP 143/73
[2017-05-20] VITALS: BP 164/94
[2017-05-20 04:00] VITALS: BP 145/98
[2017-05-20] MEDS: LACTULOSE 20G/30ML UDC PO SCH ×3 (06:00→22:11)
[2017-05-20] MEDS: CARBIDOPA/LEVODOPA 25/100MG TABLET PO SCH ×3 (06:00→22:11)
[2017-05-20 08:00] VITALS: BP 161/99
[2017-05-20] MEDS: DEXT 5% WATER + KCL 20MEQ/L 1,000 ML IV SCH ×2 (09:03→18:52)
[2017-05-20] MEDS: FAMOTIDINE 20MG/2ML VIAL IV SCH (09:03)
[2017-05-20] MEDS: LOSARTAN POTASSIUM 25 MG TABLET PO SCH (09:06)
[2017-05-20] MEDS: DONEPEZIL HCL 10MG TABLET PO SCH (09:08)
[2017-05-20] MEDS: SPIRONOLACTONE 25MG TABLET PO SCH (09:09)
[2017-05-20] MEDS: ENOXAPARIN 30MG/0.3ML SYR SUBCUT SCH (09:10)
[2017-05-20 12:00] VITALS: BP 129/76
[2017-05-20] MEDS: BENZTROPINE MESYLATE 0.5MG TABLET PO SCH ×2 (12:02→22:14)
[2017-05-20 16:00] VITALS: BP 165/96
[2017-05-20 20:00] VITALS: BP 118/66
[2017-05-20 20:09] LABS: BASOPHILS % 0.8 % (0.0-2.0); EOSINOPHILS % 1.8 % (0.0-5.0); HEMATOCRIT. 33.4 % (36.0-48.0); HEMOGLOBIN. 11.5 g/dL (12.0-16.0); LYMPHOCYTES % 34.6 % (20.0-50.0); MEAN CORPUSCULAR HEMOGLOBIN 28.6 pg (28.0-32.0); MEAN CORPUSCULAR VOLUME 82.9 fL (81.0-99.0); MEAN PLATELET VOLUME 7.8 fl (7.4-10.4); MONOCYTES % 13.2 % (2.0-8.0); NEUTROPHILS % 49.6 % (40.0-76.0); PLATELET 220 x1000/uL (130-400); RED BLOOD CELL COUNT 4.02 mill/uL (4.2-5.4); RED CELL DISTRIBUTION WIDTH 13.7 % (11.6-14.6)
[2017-05-20 20:26] LABS: CARBON DIOXIDE 29 mEq/L (21-32); CHLORIDE 106 mEq/L (98-107); PREALBUMIN 15.6 mg/dL (20.0-40.0); TOTAL IRON BINDING CAPACITY 239 ug/dL (250-450)
[2017-05-20 20:51] LABS: VITAMIN B12 SERUM 648 pg/mL (211-911)
[2017-05-20] MEDS: PRAMIPEXOLE DI-HCL 0.25MG TABLET PO SCH (22:11)
[2017-05-21] VITALS (7 sets, daily range): BP systolic 135–167; BP diastolic 71–102
[2017-05-21 06:54] LABS: BASOPHILS % 0.8 % (0.0-2.0); EOSINOPHILS % 3.1 % (0.0-5.0); HEMATOCRIT. 33.1 % (36.0-48.0); HEMOGLOBIN. 11.2 g/dL (12.0-16.0); LYMPHOCYTES % 31.9 % (20.0-50.0); MONOCYTES % 13.2 % (2.0-8.0); PLATELET 225 x1000/uL (130-400); RED BLOOD CELL COUNT 3.99 mill/uL (4.2-5.4)
[2017-05-21 07:05] LABS: CARBON DIOXIDE 29 mEq/L (21-32); CHLORIDE 106 mEq/L (98-107)
[2017-05-21] MEDS: CARBIDOPA/LEVODOPA 25/100MG TABLET PO SCH ×2 (08:00→14:16)
[2017-05-21] MEDS: LACTULOSE 20G/30ML UDC PO SCH ×2 (08:00→14:17)
[2017-05-21] MEDS: DEXT 5% WATER + KCL 20MEQ/L 1,000 ML IV SCH (08:00)
[2017-05-21] MEDS: ENOXAPARIN 30MG/0.3ML SYR SUBCUT SCH (08:39)
[2017-05-21] MEDS: DONEPEZIL HCL 10MG TABLET PO SCH (08:39)
[2017-05-21] MEDS: FAMOTIDINE 20MG/2ML VIAL IV SCH (08:39)
[2017-05-21] MEDS: LOSARTAN POTASSIUM 25 MG TABLET PO SCH (08:40)
[2017-05-21] MEDS: SPIRONOLACTONE 25MG TABLET PO SCH (09:00)
[2017-05-21] MEDS: BENZTROPINE MESYLATE 0.5MG TABLET PO SCH (12:02)
[2017-05-21] MEDS ORDERED: ENALAPRIL 1.25 MG in DEXTROSE 5% WATER 50 ML IV PRN (14:30)
[2017-05-21] MEDS ORDERED: ENALAPRIL 2.5MG/2ML VIAL 2ML IV PRN (14:30)
[2017-05-21] MEDS ORDERED: CARBIDOPA/LEVODOPA 25/100MG TABLET PO SCH (17:00)
[2017-05-21] MEDS ORDERED: LACTULOSE 20G/30ML UDC PO PRN (17:00)
[2017-05-21] MEDS ORDERED: FAMOTIDINE 20MG TABLET PO SCH (21:00)
[2017-05-21] MEDS ORDERED: PRAMIPEXOLE DI-HCL 0.25MG TABLET PO SCH (21:00)
[2017-05-22] MEDS ORDERED: DONEPEZIL HCL 10MG TABLET PO SCH (09:00)
[2017-05-22] MEDS ORDERED: LOSARTAN POTASSIUM 25 MG TABLET PO SCH (09:00)
[2017-05-24 10:06] LABS: 25-HYDROXY VITAMIN D3 27 ng/mL (.)
== END 2017-05-21 21:05 | disposition home health service (06) | DRG 392 ==
LOC: ER 09:17 → 6EST 11:28 → EDBEDREQ 11:31 → ENRESERV 12:02
PROVIDERS: ADMIT Internal Medicine Pulmonary Disease; ATTEND Internal Medicine Pulmonary Disease
DX: R13.10 Dysphagia, unspecified (principal); F02.81 Dementia in other diseases classified elsewhere, unspecified severity, with behavioral disturbance; E44.1 Mild protein-calorie malnutrition; Z68.1 Body mass index [BMI] 19.9 or less, adult; F05 Delirium due to known physiological condition; L89.152 Pressure ulcer of sacral region, stage 2; G20 Parkinson's disease; E86.0 Dehydration; R62.7 Adult failure to thrive; I10 Essential (primary) hypertension; L89.621 Pressure ulcer of left heel, stage 1; L89.611 Pressure ulcer of right heel, stage 1; Z96.1 Presence of intraocular lens; Z79.899 Other long term (current) drug therapy; Z90.710 Acquired absence of both cervix and uterus; Z82.49 Family history of ischemic heart disease and other diseases of the circulatory system; Z98.42 Cataract extraction status, left eye; Z87.891 Personal history of nicotine dependence; Z87.81 Personal history of (healed) traumatic fracture; E61.1 Iron deficiency
CPT/HCPCS: 36415; 70450; 70490; 73650; 74022; 80048; 80053; 81001; 82306; 82607; 83540; 83550; 83690; 83735; 84134; 84484; 85025; 85610; 85730; 87086; 92610; 93005; 96361; 96374; 99285; J1630; J1650; J3411; J3490; J7030; J7040; J7060; A4315

== ENCOUNTER 2017-07-30 19:07 | Inpatient (IN) | payer MEDICARE ==
[~2017-07-30] VITALS: Ht 167.6 cm; Wt 59.4 kg
[~2017-07-30 19:07] MED LIST changes: -LOSA25TA12 PO
[2017-07-30] MEDS ORDERED: SODIUM CHLORIDE 0.9% 1,000 ML IV ONE (19:30)
[2017-07-30 21:30] LABS: EOSINOPHILS % 0.9 % (0.0-5.0); HEMATOCRIT. 35.6 % (36.0-48.0); HEMOGLOBIN. 11.9 g/dL (12.0-16.0); LYMPHOCYTES % 40.7 % (20.0-50.0); MEAN CORPUSCULAR VOLUME 84.1 fL (81.0-99.0); MEAN PLATELET VOLUME 7.8 fl (7.4-10.4); MONOCYTES % 13.4 % (2.0-8.0); PLATELET 189 x1000/uL (130-400); RED BLOOD CELL COUNT 4.23 mill/uL (4.2-5.4); RED CELL DISTRIBUTION WIDTH 14.2 % (11.6-14.6)
[2017-07-30 21:35] LABS: CHLORIDE 105 mEq/L (98-107)
[2017-07-30 21:40] LABS: INR 1.1; PROTHROMBIN TIME 11.8 sec (9.4-11.6)
[2017-07-30 21:43] LABS: CARBON DIOXIDE 28 mEq/L (21-32)
[2017-07-30] MEDS ORDERED: SODIUM CHLORIDE 0.9% 1000ML BAG (SEPSIS BOLUS) IV ONE (21:45)
[2017-07-30] MEDS ORDERED: LEVOFLOXACIN 750MG PREMIX 150 ML IV ONE (21:45)
[2017-07-30 21:46] LABS: CREATINE KINASE MB FRACTION 0.7 ng/mL (0.5-3.6); TROPONIN I < 0.02 ng/mL (0.00-0.04)
[2017-07-30] MEDS ORDERED: ASPIRIN 325MG EC TABLET PO ONE (22:00)
[2017-07-30] MEDS ORDERED: METRONIDAZOLE 500 MG PREMIX 100 ML IV ONE (22:00)
[2017-07-30 22:21] LABS: CLARITY URINE CLOUDY (CLEAR); COLOR URINE YELLOW (YELLOW); GLUCOSE URINE NEGATIVE (NEGATIVE); KETONES URINE TRACE (NEGATIVE); LEUKOCYTE ESTERASE URINE 1+ (NEGATIVE); NITRITE URINE POSITIVE (NEGATIVE); OCCULT BLOOD URINE NEGATIVE (NEGATIVE); PROTEIN URINE NEGATIVE (NEGATIVE); SPECIFIC GRAVITY URINE 1.018 (1.005-1.030)
[2017-07-31] MEDS ORDERED: CLONIDINE 0.2MG TABLET PO ONE (00:30)
[2017-07-31 01:15] VITALS: BP 181/81
[2017-07-31] MEDS: LOSARTAN POTASSIUM 50 MG TABLET PO SCH ×2 (02:31→09:00)
[2017-07-31 04:00] VITALS: BP 152/79
[2017-07-31] MEDS: DEXT 5%/0.45% NACL KCL 20MEQ/L 1,000 ML IV SCH (04:00)
[2017-07-31] MEDS: CARBIDOPA/LEVODOPA 25/100MG TABLET PO SCH ×3 (05:42→21:33)
[2017-07-31] MEDS ORDERED: LEVOFLOXACIN 500MG PREMIX 100 ML IV SCH (09:00)
[2017-07-31] MEDS ORDERED: ENALAPRIL 2.5MG/2ML VIAL 2ML IV PRN (09:45)
[2017-07-31 10:36] LABS: BASOPHILS % 0.8 % (0.0-2.0); EOSINOPHILS % 1.6 % (0.0-5.0); HEMATOCRIT. 31.3 % (36.0-48.0); HEMOGLOBIN. 10.4 g/dL (12.0-16.0); LYMPHOCYTES % 29.1 % (20.0-50.0); MEAN CORPUSCULAR HEMOGLOBIN 28.2 pg (28.0-32.0); MEAN CORPUSCULAR VOLUME 84.9 fL (81.0-99.0); MONOCYTES % 13.2 % (2.0-8.0); NEUTROPHILS % 55.3 % (40.0-76.0); PLATELET 181 x1000/uL (130-400); RED BLOOD CELL COUNT 3.69 mill/uL (4.2-5.4); RED CELL DISTRIBUTION WIDTH 13.8 % (11.6-14.6)
[2017-07-31 10:49] LABS: CARBON DIOXIDE 30 mEq/L (21-32); CHLORIDE 106 mEq/L (98-107)
[2017-07-31] MEDS: ENALAPRIL 1.25 MG in DEXTROSE 5% WATER 50 ML IV PRN (15:26)
[2017-07-31 15:40] VITALS: BP 139/79
[2017-07-31] MEDS ORDERED: THIAMINE HCL 100 MG in SODIUM CHLORIDE 0.9% 49 ML IV NR (17:00)
[2017-07-31 20:00] VITALS: BP 108/66
[2017-07-31] MEDS: LEVOFLOXACIN 250MG PREMIX 50 ML IV SCH (23:52)
[2017-08-01] VITALS (7 sets, daily range): BP systolic 101–179; BP diastolic 59–91
[2017-08-01] MEDS: DEXT 5%/0.45% NACL KCL 20MEQ/L 1,000 ML IV SCH (00:28)
[2017-08-01] MEDS: ENALAPRIL 1.25 MG in DEXTROSE 5% WATER 50 ML IV PRN (05:26)
[2017-08-01] MEDS: CARBIDOPA/LEVODOPA 25/100MG TABLET PO SCH ×3 (05:31→21:33)
[2017-08-01 07:04] LABS: BASOPHILS % 0.9 % (0.0-2.0); EOSINOPHILS % 2.7 % (0.0-5.0); HEMATOCRIT. 33.8 % (36.0-48.0); HEMOGLOBIN. 11.2 g/dL (12.0-16.0); LYMPHOCYTES % 42.4 % (20.0-50.0); MEAN CORPUSCULAR HEMOGLOBIN 28.6 pg (28.0-32.0); MEAN CORPUSCULAR VOLUME 86.8 fL (81.0-99.0); MEAN PLATELET VOLUME 7.9 fl (7.4-10.4); MONOCYTES % 13.5 % (2.0-8.0); NEUTROPHILS % 40.5 % (40.0-76.0); PLATELET 153 x1000/uL (130-400); RED CELL DISTRIBUTION WIDTH 14.3 % (11.6-14.6)
[2017-08-01 07:20] LABS: CARBON DIOXIDE 28 mEq/L (21-32); CHLORIDE 105 mEq/L (98-107)
[2017-08-01] MEDS: LOSARTAN POTASSIUM 50 MG TABLET PO SCH (08:58)
[2017-08-01] MEDS: DONEPEZIL HCL 10MG TABLET PO SCH ×2 (11:57→12:44)
[2017-08-01] MEDS ORDERED: DEXT 5%/0.45% NACL KCL 20MEQ/L 1,000 ML IV SCH (14:30)
[2017-08-01] MEDS ORDERED: ACETAMINOPHEN 325MG TABLET PO PRN (16:45)
[2017-08-01] MEDS: LEVOFLOXACIN 250MG PREMIX 50 ML IV SCH (22:04)
[2017-08-01] MEDS: HALOPERIDOL LACTATE 5MG/ML VIAL IM PRN (22:37)
[2017-08-02] VITALS: BP 183/89
[2017-08-02] MEDS: CLONIDINE 0.1MG TABLET PO PRN ×3 (00:46→17:35)
[2017-08-02] MEDS: ENALAPRIL 1.25 MG in DEXTROSE 5% WATER 50 ML IV PRN ×2 (01:08→18:29)
[2017-08-02 04:00] VITALS: BP 150/80
[2017-08-02] MEDS: CARBIDOPA/LEVODOPA 25/100MG TABLET PO SCH ×3 (06:39→23:21)
[2017-08-02 08:00] VITALS: BP 181/94
[2017-08-02] MEDS: DONEPEZIL HCL 10MG TABLET PO SCH (08:09)
[2017-08-02] MEDS: LOSARTAN POTASSIUM 50 MG TABLET PO SCH (08:10)
[2017-08-02 12:00] VITALS: BP 141/77
[2017-08-02 16:00] VITALS: BP 175/85
[2017-08-02 20:00] VITALS: BP 176/90
[2017-08-02] MEDS: LEVOFLOXACIN 250MG TABLET PO SCH (23:21)
[2017-08-03] VITALS: BP 115/91
[2017-08-03 04:00] VITALS: BP 169/82
[2017-08-03] MEDS: CARBIDOPA/LEVODOPA 25/100MG TABLET PO SCH ×3 (06:23→22:05)
[2017-08-03 08:00] VITALS: BP 153/88
[2017-08-03] MEDS: LOSARTAN POTASSIUM 50 MG TABLET PO SCH (09:29)
[2017-08-03] MEDS: DONEPEZIL HCL 10MG TABLET PO SCH (09:29)
[2017-08-03 12:00] VITALS: BP 150/85
[2017-08-03 16:00] VITALS: BP 133/83
[2017-08-03 20:00] VITALS: BP 138/84
[2017-08-03] MEDS: LEVOFLOXACIN 250MG TABLET PO SCH (22:05)
[2017-08-04] VITALS: BP 138/77
[2017-08-04 04:00] VITALS: BP 133/79
[2017-08-04] MEDS: CARBIDOPA/LEVODOPA 25/100MG TABLET PO SCH ×2 (05:08→12:57)
[2017-08-04 08:00] VITALS: BP 133/70
[2017-08-04] MEDS: DONEPEZIL HCL 10MG TABLET PO SCH (08:07)
[2017-08-04] MEDS: LOSARTAN POTASSIUM 50 MG TABLET PO SCH (08:08)
[2017-08-04 12:00] VITALS: BP 146/80
[2017-08-04] MEDS: HALOPERIDOL LACTATE 5MG/ML VIAL IM PRN (12:57)
[2017-08-04 14:17] VITALS: BP 132/76
[2017-08-04 16:00] VITALS: BP 141/76
== END 2017-08-04 19:44 | disposition home health service (06) | DRG 689 ==
LOC: ER 19:36 → OBSVTOIN 22:32 → INTOOBSV 22:32 → 8WST 22:32 → ENRESERV 22:42 → CANRESERV 22:42 → ENRESERV 23:00
PROVIDERS: ADMIT Internal Medicine Pulmonary Disease; ATTEND Internal Medicine Pulmonary Disease
DX: N39.0 Urinary tract infection, site not specified (principal); G92 Toxic encephalopathy; L89.152 Pressure ulcer of sacral region, stage 2; L89.309 Pressure ulcer of unspecified buttock, unspecified stage; E46 Unspecified protein-calorie malnutrition; G20 Parkinson's disease; B96.1 Klebsiella pneumoniae [K. pneumoniae] as the cause of diseases classified elsewhere; E86.0 Dehydration; R62.7 Adult failure to thrive; F02.80 Dementia in other diseases classified elsewhere, unspecified severity, without behavioral disturbance, psychotic disturbance, mood disturbance, and anxiety; F22 Delusional disorders; G30.9 Alzheimer's disease, unspecified; I10 Essential (primary) hypertension; Z82.49 Family history of ischemic heart disease and other diseases of the circulatory system; Z87.891 Personal history of nicotine dependence; Z87.81 Personal history of (healed) traumatic fracture; Z90.710 Acquired absence of both cervix and uterus; Z79.899 Other long term (current) drug therapy; Z98.42 Cataract extraction status, left eye; Z96.1 Presence of intraocular lens
CPT/HCPCS: 36415; 51702; 70450; 71010; 80048; 80053; 81001; 82553; 82962; 83605; 84443; 84484; 85025; 85610; 85730; 87040; 87077; 87086; 87186; 92610; 93005; 95816; 96374; 99285; C1893; J1630; J1956; J3411; J3490; J7030; J7060; A4315

== ENCOUNTER 2017-08-06 15:17 | Inpatient (IN) | payer MEDICARE ==
[~2017-08-06] VITALS: Ht 157.5 cm; Wt 59.4 kg
[2017-08-06 17:18] LABS: BASOPHILS % 0.7 % (0.0-2.0); EOSINOPHILS % 0.5 % (0.0-5.0); HEMATOCRIT. 37.3 % (36.0-48.0); HEMOGLOBIN. 12.4 g/dL (12.0-16.0); LYMPHOCYTES % 12.4 % (20.0-50.0); MEAN CORPUSCULAR HEMOGLOBIN 28.2 pg (28.0-32.0); MEAN CORPUSCULAR VOLUME 84.6 fL (81.0-99.0); MONOCYTES % 9.7 % (2.0-8.0); NEUTROPHILS % 76.7 % (40.0-76.0); PLATELET 170 x1000/uL (130-400); RED CELL DISTRIBUTION WIDTH 14.1 % (11.6-14.6)
[2017-08-06 17:24] LABS: CHLORIDE 101 mEq/L (98-107); INR 1.1; PROTHROMBIN TIME 11.4 sec (9.4-11.6)
[2017-08-06 17:31] LABS: CARBON DIOXIDE 28 mEq/L (21-32)
[2017-08-06 17:37] LABS: TROPONIN I 0.83 ng/mL (0.00-0.04)
[2017-08-06] MEDS ORDERED: ASPIRIN 325MG EC TABLET PO NR (18:00)
[2017-08-06] MEDS ORDERED: NITROGLYCERIN OINT 1GM/INCH UDPKT TD NR (18:00)
[2017-08-06 21:00] LABS: CLARITY URINE CLEAR (CLEAR); COLOR URINE YELLOW (YELLOW); GLUCOSE URINE NEGATIVE (NEGATIVE); KETONES URINE NEGATIVE (NEGATIVE); LEUKOCYTE ESTERASE URINE NEGATIVE (NEGATIVE); NITRITE URINE NEGATIVE (NEGATIVE); OCCULT BLOOD URINE NEGATIVE (NEGATIVE); PH URINE 5.5 (4.5-8.0); PROTEIN URINE NEGATIVE (NEGATIVE); SPECIFIC GRAVITY URINE 1.019 (1.005-1.030); UROBILINOGEN URINE 0.2 E.U./dL (0.2-1.0)
[2017-08-06 22:00] VITALS: BP 123/76
[2017-08-06] MEDS: CARBIDOPA/LEVODOPA 25/100MG TABLET PO SCH (23:00)
[2017-08-06] MEDS ORDERED: LEVO250T2 PO (23:15)
[2017-08-06] MEDS ORDERED: LOSA50TA20 PO (23:15)
[2017-08-06] MEDS ORDERED: BENZ0.5T3 PO (23:15)
[2017-08-06] MEDS ORDERED: DONE10TA36 PO (23:15)
[2017-08-06] MEDS ORDERED: RISP0.5T19 PO (23:15)
[2017-08-07] VITALS: BP 120/76
[2017-08-07 04:00] VITALS: BP 144/81
[2017-08-07] MEDS: DEXT 5%/0.45% NACL KCL 20MEQ/L 1,000 ML IV SCH ×2 (04:01→15:43)
[2017-08-07] MEDS: CARBIDOPA/LEVODOPA 25/100MG TABLET PO SCH ×3 (05:29→22:11)
[2017-08-07 08:00] VITALS: BP_SYST 127; BP_SYST 135; BP_DIAS 68; BP_DIAS 79
[2017-08-07] MEDS: DONEPEZIL HCL 10MG TABLET PO SCH (08:24)
[2017-08-07] MEDS: BENZTROPINE MESYLATE 0.5MG TABLET PO SCH ×3 (08:24→22:11)
[2017-08-07] MEDS: ENOXAPARIN 30MG/0.3ML SYR SUBCUT SCH (08:25)
[2017-08-07] MEDS ORDERED: LOSARTAN POTASSIUM 50 MG TABLET PO PRN (09:00)
[2017-08-07] MEDS ORDERED: DONEPEZIL HCL 10 MG PO SCH (09:00)
[2017-08-07] MEDS ORDERED: LEVOFLOXACIN 250MG TABLET PO SCH (09:00)
[2017-08-07 09:49] LABS: CREATINE KINASE MB FRACTION 2.3 ng/mL (0.5-3.6)
[2017-08-07 10:03] LABS: TROPONIN I 0.73 ng/mL (0.00-0.04)
[2017-08-07 10:06] LABS: CARBON DIOXIDE 25 mEq/L (21-32); CHLORIDE 106 mEq/L (98-107)
[2017-08-07 10:10] LABS: BASOPHILS % 2.1 % (0.0-2.0); EOSINOPHILS % 1.3 % (0.0-5.0); HEMATOCRIT. 33.2 % (36.0-48.0); HEMOGLOBIN. 11.1 g/dL (12.0-16.0); LYMPHOCYTES % 26.6 % (20.0-50.0); MEAN CORPUSCULAR HEMOGLOBIN 28.3 pg (28.0-32.0); MEAN CORPUSCULAR VOLUME 84.4 fL (81.0-99.0); MEAN PLATELET VOLUME 8.3 fl (7.4-10.4); MONOCYTES % 10.6 % (2.0-8.0); NEUTROPHILS % 59.4 % (40.0-76.0); PLATELET 160 x1000/uL (130-400); RED BLOOD CELL COUNT 3.93 mill/uL (4.2-5.4); RED CELL DISTRIBUTION WIDTH 13.9 % (11.6-14.6)
[2017-08-07] MEDS: LEVOFLOXACIN 250MG TABLET PO SCH (11:45)
[2017-08-07 12:00] VITALS: BP 121/66
[2017-08-07 16:00] VITALS: BP 189/96
[2017-08-07] MEDS: RISPERIDONE 0.5MG TABLET PO SCH (17:35)
[2017-08-07 20:00] VITALS: BP_SYST 136; BP_SYST 150; BP_DIAS 77
[2017-08-07] MEDS ORDERED: PRAMIPEXOLE DI-HCL 0.25MG TABLET PO SCH (21:00)
[2017-08-08] VITALS (7 sets, daily range): BP systolic 134–176; BP diastolic 51–92
[2017-08-08] MEDS: CARBIDOPA/LEVODOPA 25/100MG TABLET PO SCH ×3 (05:45→22:00)
[2017-08-08 06:54] LABS: BASOPHILS % 0.9 % (0.0-2.0); EOSINOPHILS % 1.4 % (0.0-5.0); HEMATOCRIT. 31.2 % (36.0-48.0); HEMOGLOBIN. 10.4 g/dL (12.0-16.0); MEAN CORPUSCULAR VOLUME 84.2 fL (81.0-99.0); MEAN PLATELET VOLUME 8.2 fl (7.4-10.4); MONOCYTES % 14.3 % (2.0-8.0); NEUTROPHILS % 56.4 % (40.0-76.0); PLATELET 159 x1000/uL (130-400); RED BLOOD CELL COUNT 3.71 mill/uL (4.2-5.4); RED CELL DISTRIBUTION WIDTH 13.8 % (11.6-14.6)
[2017-08-08 07:12] LABS: CARBON DIOXIDE 30 mEq/L (21-32); CHLORIDE 104 mEq/L (98-107); CREATINE KINASE 30 IU/L (26-192); CREATINE KINASE MB FRACTION 0.9 ng/mL (0.5-3.6); HDL CHOLESTEROL 43 mg/dL (40-59); LDL CHOLESTEROL 85 mg/dL (5-100)
[2017-08-08] MEDS: DONEPEZIL HCL 10MG TABLET PO SCH (08:24)
[2017-08-08] MEDS: DEXT 5%/0.45% NACL KCL 20MEQ/L 1,000 ML IV SCH (08:24)
[2017-08-08] MEDS: BENZTROPINE MESYLATE 0.5MG TABLET PO SCH ×2 (08:24→21:00)
[2017-08-08] MEDS: ENOXAPARIN 30MG/0.3ML SYR SUBCUT SCH (08:25)
[2017-08-08] MEDS: LOSARTAN POTASSIUM 50 MG TABLET PO SCH (09:22)
[2017-08-08] MEDS: LEVOFLOXACIN 250MG TABLET PO SCH (13:08)
[2017-08-08] MEDS: AMLODIPINE 2.5MG TABLET PO SCH ×2 (14:13→21:00)
[2017-08-08] MEDS: CLONIDINE 0.1MG TABLET PO PRN (14:52)
[2017-08-08 16:34] LABS: AMMONIA 16 uMol/L (<32)
[2017-08-08] MEDS: RISPERIDONE 0.5MG TABLET PO SCH (17:00)
[2017-08-09] VITALS (7 sets, daily range): BP systolic 93–159; BP diastolic 47–75
[2017-08-09] MEDS: DEXT 5%/0.45% NACL KCL 20MEQ/L 1,000 ML IV SCH ×2 (01:13→15:44)
[2017-08-09] MEDS: CARBIDOPA/LEVODOPA 25/100MG TABLET PO SCH ×3 (06:00→21:36)
[2017-08-09 08:21] LABS: BASOPHILS % 1.1 % (0.0-2.0); EOSINOPHILS % 3.2 % (0.0-5.0); HEMATOCRIT. 32.9 % (36.0-48.0); HEMOGLOBIN. 11.1 g/dL (12.0-16.0); LYMPHOCYTES % 37.1 % (20.0-50.0); MEAN CORPUSCULAR HEMOGLOBIN 28.2 pg (28.0-32.0); MEAN CORPUSCULAR VOLUME 83.8 fL (81.0-99.0); MEAN PLATELET VOLUME 8.2 fl (7.4-10.4); MONOCYTES % 14.2 % (2.0-8.0); NEUTROPHILS % 44.4 % (40.0-76.0); PLATELET 174 x1000/uL (130-400); RED BLOOD CELL COUNT 3.93 mill/uL (4.2-5.4); RED CELL DISTRIBUTION WIDTH 13.3 % (11.6-14.6)
[2017-08-09] MEDS: BENZTROPINE MESYLATE 0.5MG TABLET PO SCH ×2 (09:00→21:35)
[2017-08-09 09:16] LABS: CARBON DIOXIDE 29 mEq/L (21-32); CHLORIDE 103 mEq/L (98-107); TROPONIN I 0.12 ng/mL (0.00-0.04)
[2017-08-09] MEDS: LOSARTAN POTASSIUM 50 MG TABLET PO SCH (09:37)
[2017-08-09] MEDS: AMLODIPINE 2.5MG TABLET PO SCH ×2 (09:38→21:35)
[2017-08-09] MEDS: DONEPEZIL HCL 10MG TABLET PO SCH (09:41)
[2017-08-09] MEDS: ENOXAPARIN 30MG/0.3ML SYR SUBCUT SCH (09:45)
[2017-08-09] MEDS: LEVOFLOXACIN 250MG TABLET PO SCH (11:53)
[2017-08-09] MEDS: ACETAMINOPHEN 500MG TABLET PO PRN (15:05)
[2017-08-10] VITALS: BP 137/68
[2017-08-10 04:00] VITALS: BP 134/73
[2017-08-10] MEDS: DEXT 5%/0.45% NACL KCL 20MEQ/L 1,000 ML IV SCH ×3 (05:47→21:09)
[2017-08-10] MEDS: CARBIDOPA/LEVODOPA 25/100MG TABLET PO SCH ×3 (05:54→21:09)
[2017-08-10 06:19] LABS: HEMATOCRIT. 33.6 % (36.0-48.0); HEMOGLOBIN. 11.3 g/dL (12.0-16.0); MEAN CORPUSCULAR HEMOGLOBIN 28.3 pg (28.0-32.0); MEAN CORPUSCULAR VOLUME 84.4 fL (81.0-99.0); MEAN PLATELET VOLUME 8.2 fl (7.4-10.4); PLATELET 183 x1000/uL (130-400); RED BLOOD CELL COUNT 3.99 mill/uL (4.2-5.4); RED CELL DISTRIBUTION WIDTH 13.8 % (11.6-14.6)
[2017-08-10 06:51] LABS: CARBON DIOXIDE 30 mEq/L (21-32); CHLORIDE 105 mEq/L (98-107)
[2017-08-10 08:00] VITALS: BP 133/76
[2017-08-10 09:54] LABS: PLATELET ESTIMATE NORMAL
[2017-08-10] MEDS: AMLODIPINE 2.5MG TABLET PO SCH ×2 (10:13→21:00)
[2017-08-10] MEDS: DONEPEZIL HCL 10MG TABLET PO SCH (10:13)
[2017-08-10] MEDS: LOSARTAN POTASSIUM 50 MG TABLET PO SCH (10:13)
[2017-08-10] MEDS: BENZTROPINE MESYLATE 0.5MG TABLET PO SCH ×2 (10:14→21:09)
[2017-08-10] MEDS: ENOXAPARIN 30MG/0.3ML SYR SUBCUT SCH (10:14)
[2017-08-10] MEDS: LEVOFLOXACIN 250MG TABLET PO SCH (10:19)
[2017-08-10 12:02] VITALS: BP 141/80
[2017-08-10] MEDS: ACETAMINOPHEN 500MG TABLET PO PRN (14:45)
[2017-08-10 16:07] VITALS: BP 125/69
[2017-08-10 20:00] VITALS: BP 127/72
[2017-08-11] VITALS: BP 178/93
[2017-08-11] MEDS: CLONIDINE 0.1MG TABLET PO PRN (00:05)
[2017-08-11] MEDS: ACETAMINOPHEN 500MG TABLET PO PRN (03:00)
[2017-08-11 04:00] VITALS: BP 129/86
[2017-08-11] MEDS: CARBIDOPA/LEVODOPA 25/100MG TABLET PO SCH ×2 (05:52→14:51)
[2017-08-11 08:00] VITALS: BP 152/85
[2017-08-11 09:52] LABS: BASOPHILS % 0.9 % (0.0-2.0); EOSINOPHILS % 2.3 % (0.0-5.0); HEMATOCRIT. 33.5 % (36.0-48.0); HEMOGLOBIN. 11.4 g/dL (12.0-16.0); LYMPHOCYTES % 35.2 % (20.0-50.0); MEAN CORPUSCULAR HEMOGLOBIN 28.4 pg (28.0-32.0); MEAN CORPUSCULAR VOLUME 83.5 fL (81.0-99.0); MEAN PLATELET VOLUME 8.3 fl (7.4-10.4); MONOCYTES % 13.7 % (2.0-8.0); NEUTROPHILS % 47.9 % (40.0-76.0); PLATELET 203 x1000/uL (130-400); RED BLOOD CELL COUNT 4.01 mill/uL (4.2-5.4); RED CELL DISTRIBUTION WIDTH 13.7 % (11.6-14.6)
[2017-08-11] MEDS: ENOXAPARIN 30MG/0.3ML SYR SUBCUT SCH (10:09)
[2017-08-11] MEDS: BENZTROPINE MESYLATE 0.5MG TABLET PO SCH (10:09)
[2017-08-11] MEDS: LOSARTAN POTASSIUM 50 MG TABLET PO SCH (10:10)
[2017-08-11] MEDS: AMLODIPINE 2.5MG TABLET PO SCH (10:10)
[2017-08-11] MEDS: DONEPEZIL HCL 10MG TABLET PO SCH (10:10)
[2017-08-11 10:12] LABS: CARBON DIOXIDE 30 mEq/L (21-32); CHLORIDE 106 mEq/L (98-107)
[2017-08-11] MEDS: LEVOFLOXACIN 250MG TABLET PO SCH (11:47)
[2017-08-11 12:00] VITALS: BP 135/82
[2017-08-11 16:00] VITALS: BP 141/69
[2017-08-11 18:02] VITALS: BP 141/69
== END 2017-08-11 20:10 | disposition home health service (06) | DRG 73 ==
LOC: ER 15:28 → 5WST 18:05 → ENRESERV 19:34
PROVIDERS: ADMIT Internal Medicine Critical Care Medicine; ATTEND Internal Medicine Critical Care Medicine
DX: G90.8 Other disorders of autonomic nervous system (principal); G93.40 Encephalopathy, unspecified; E46 Unspecified protein-calorie malnutrition; L89.159 Pressure ulcer of sacral region, unspecified stage; E87.2 Acidosis; G20 Parkinson's disease; N39.0 Urinary tract infection, site not specified; G30.9 Alzheimer's disease, unspecified; F02.80 Dementia in other diseases classified elsewhere, unspecified severity, without behavioral disturbance, psychotic disturbance, mood disturbance, and anxiety; R55 Syncope and collapse; R73.9 Hyperglycemia, unspecified; F22 Delusional disorders; I10 Essential (primary) hypertension; R62.7 Adult failure to thrive; B96.1 Klebsiella pneumoniae [K. pneumoniae] as the cause of diseases classified elsewhere; Z68.24 Body mass index [BMI] 24.0-24.9, adult; Z79.899 Other long term (current) drug therapy
CPT/HCPCS: 36415; 71010; 80048; 80053; 80061; 81003; 82140; 82550; 82553; 83605; 83735; 83880; 84443; 84484; 85025; 85379; 85610; 87040; 87086; 93005; 93306; 93970; 99285; J1650; A4315

== ENCOUNTER 2017-08-16 20:24 | Emergency (ER) | payer MEDICARE ==
[~2017-08-16] VITALS: Ht 165.1 cm; Wt 54.0 kg
[2017-08-16 20:24] VITALS: BP 0/0
[~2017-08-16 20:24] MED LIST changes: +DONE10TA36 PO; +EPINEPHRINE 0.1MG/ML (1:10,000) 10ML SYR ONE; +LOSA50TA20 PO; -MIR25 PO; +RISP0.5T19 PO; -SPIR25TA4 PO
== END 2017-08-16 20:25 | disposition expired ==
LOC: ER 20:24
DX: I46.9 Cardiac arrest, cause unspecified (principal); F03.90 Unspecified dementia, unspecified severity, without behavioral disturbance, psychotic disturbance, mood disturbance, and anxiety; I11.0 Hypertensive heart disease with heart failure
CPT/HCPCS: 99285; J0171